=== PATIENT | male | born 1950 | race Caucasian/White ===

== ENCOUNTER → 2016-04-27 | Outpatient (CLI) | payer BC, OTHER ==
[2016-04-28 11:02] LABS: BUN/CREATININE RATIO 18.46 (6-20); CREATININE 1.3 mg/dL (0.70-1.50); POTASSIUM 5.4 meq/L (3.8-5.2)
[2016-04-28 11:03] LABS: BILIRUBIN,TOTAL 0.7 mg/dL (0.3-1.2); CALCIUM 9.6 mg/dL (8.7-10.7); LDL CHOLESTEROL,CALCULATED 72.6 mg/dL; TOTAL PROTEIN 8.1 g/dL (6.1-8.0)
== END ==
LOC: MOB LAB 14:15
DX: I10 Essential (primary) hypertension (principal); E55.9 Vitamin D deficiency, unspecified; N40.1 Benign prostatic hyperplasia with lower urinary tract symptoms; F17.210 Nicotine dependence, cigarettes, uncomplicated; Z12.5 Encounter for screening for malignant neoplasm of prostate
CPT/HCPCS: 36415; 80053; 80061; 82306; 84443; G0103

== ENCOUNTER → 2016-06-09 | Outpatient (CLI) | payer BC, OTHER ==
[2016-06-09 11:45] LABS: BUN/CREATININE RATIO 18.12 (6-20); CALCIUM 10.3 mg/dL (8.7-10.7); CREATININE 1.6 mg/dL (0.70-1.50); POTASSIUM 5.6 meq/L (3.8-5.2)
== END ==
LOC: MOB LAB 10:02
DX: E87.5 Hyperkalemia (principal); F17.210 Nicotine dependence, cigarettes, uncomplicated
CPT/HCPCS: 36415; 80048

== ENCOUNTER 2016-08-28 14:03 | Emergency (ER) | payer BC, OTHER ==
[2016-08-28] MEDS ORDERED: ALPRAZolam Tab 1 MG TABLET PO ONE (14:18)
[2016-08-28 14:41] VITALS: RESP 14; TEMP 98
--- NOTE | 2016-08-28 15:18 | PDOC ---
General Adult HPI - General Chief Complaint: General Medical Stated Complaint: needs med refilled Date Seen by Provider: 08/28/16 Time Seen by Provider: 14:05 Source: POSITIVE: Patient Exam Limitations: POSITIVE: No limitations Nurse's Notes Reviewed & Considered: Yes - History of Present Illness Initial Comment: The patient is a 65-year-old male who presents to the emergency department with increased anxiety stating that he ran out of Xanax. The patient reports that he has a long-standing history of anxiety and previous history of alcohol abuse. He currently denies any alcohol use. He states he has had increased stress recently as his is currently ill and was life flighted to [place] several days ago. He states that he has taken Xanax for his anxiety for quite some time. He is prescribed one or 2 every 8 hours as needed. He reports that he has been taking 2 every 8 hours recently because of his increased stress. He subsequently ran out of his Xanax and is not due to have it filled until Monday of this week. He states that he ran out of his prescription 3 days ago. He thinks that he had a seizure yesterday that was witnessed by his son. Today he reports some shakiness however has not had any further seizure activity. He denies headache, numbness or weakness in his extremities, any other associated symptoms. Have you received a tetanus shot in the past 10 years?: Unknown - Patient Home Medications Home Medications: Home Medications Multivitamin W-Minerals/Lutein [Centrum Silver Tablet] 1 tab PO DAILY tab 03/26 Sildenafil Citrate [Viagra] 0.5 - 1 tab PO DAILY PRN #10 tab 04/16/14 Aspirin [Low Dose Aspirin Ec] 1 tab PO QD #30 tab 05/18/15 Lansoprazole [Prevacid] 1 cap PO QD PRN #30 cap 08/04/15 Alprazolam 0.5 - 1 mg PO TID #90 tab 04/04/16 Nifedipine [Procardia Xl] 1 tab PO QD #30 tab 04/04/16 Valsartan/Hydrochlorothiazide [Diovan Hct 160-12.5 Mg Tab] 1 tab PO BID #60 tab 04/04/16 Cholecalciferol (Vitamin D3) [Vitamin D3] 1 cap PO QD #30 cap 05/03/16 Hydrocodone/Ibuprofen [Hydrocodone-Ibuprofen 7.5-200] 1 tab PO Q6H PRN #120 tab 08/03/16 Alprazolam [Xanax] 0.5 - 1 mg PO Q8H PRN #10 tab 08/28/16 - Patient Allergies Allergies/Adverse Reactions: Allergies Allergy/AdvReac Type Severity Reaction Status Date / Time codeine [Codeine] AdvReac Mild FELT BAD. Verified 08/28/16 14:18 Past Medical History - heen HEENT History: Hard of Hearing, Dentures/Partials, Other (please comment) Additional HEENT History: WEARS GLASSES Cardiovascular History: Hypertension Additional Cardiovasular History: aortic valve replaced 2006 Respiratory History: Denies History Gastrointestinal History: Hepatitis, Other (please comment) Additional Gastrointestinal History: PROPHERIA Genitourinary History: Denies History Endocrine History: Denies History Musculoskeletal History: Arthritis, Back Pain, Joint Pain Prosthesis or Implant: No Neurological History: Denies History Blood Disorders: Denies History Psychiatric History: Anxiety Disorders History of Sexually Transmitted Diseases: No Male Reproductive History: Impotence Cancer History: Denies History In Past Year Been Physically Harmed or Verbally Threatened: No (PER PATIENT) History of MDRO: No History of Other Communicable Diseases: No Tobacco Use: Light Tobacco Smoker Alcohol Use: None Substance Use Type: None Previous Surgical History: Yes Type / Date of Surgery: AORTIC VALVE REPLACEMENT (BOVINE), BILATERAL SHOULDER REPAIRS, RIGHT INGUINAL HERNIA REPAIR, L5 DISC REPAIR Anesthesia Reactions: No Malignant Hyperthermia: No Family History of Malignant Hyperthermia: No Significant Family History: No pertinent family hx Past Medical History Reviewed: Reviewed - No Changes ROS - Limitations ROS Limitations: No Limitations Constitution: REPORTS: Denies Symptoms Cardiovascular: REPORTS: Denies Cardiac Symptoms Respiratory: REPORTS: Denies Resp Symptoms Neurological: REPORTS: Seizure Activity (Yesterday according to his son). DENIES: Headache, Numbness, Weakness Gastrointestinal: REPORTS: Denies GI Symptoms Musculoskeletal: REPORTS: Denies MS Symptoms Eyes: REPORTS: Denies Symptoms ENT: REPORTS: Denies Symptoms General Adult Exam - General Appearance General Appearance: POSITIVE: Alert, Cooperative, No Acute Distress - HEENT HEENT: POSITIVE: Head Inspection Nml - Neck Neck: POSITIVE: Normal Inspection - Respiratory Respiratory: POSITIVE: No Respiratory Distress, Breath Sounds Normal - Cardiovascular Cardiovascular: POSITIVE: Regular Rate & Rhythm, No Murmur - Skin Skin: POSITIVE: Normal Color, No Rash - Extremities Extremity: Normal ROM: (All Extremities), Normal Inspection: (All Extremities) - Neurological / Psychological Neurological: POSITIVE: Oriented X3, 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 He was given 1 mg of Xanax here in the emergency department. He was given a prescription for #10 0.5 mg tabs which he can take one or 2 every 8 hours as needed for anxiety which is how this is normally prescribed. He is advised return to the emergency room if he develops any worsening withdrawal symptoms or especially if he has any recurrent seizure. He will follow-up with his primary care provider Dr. Way to discuss further prescriptions for his anxiety. He did express interest in weaning off of the Xanax. - Consult Counseled: POSITIVE: Patient, RE: DX, RE: Need for F/U Patient Care Time - Estimated PCT Patient Care Time (In Minutes): 15 Vital Signs - Recent Vital Signs Vital Signs: Vital Signs (Last 8 hours) Temp Pulse Resp BP Pulse Ox 08/28/16 14:03 98.0 F 71 14 140/90 96 - VS Reviewed Vital Signs Reviewed: Yes Discharge Clinical Impression: Anxiety, Benzodiazepine withdrawal Discharge Disposition: Discharged to Home Condition: Stable Prescriptions / Orders: Alprazolam [Xanax] 0.5 - 1 mg PO Q8H PRN #10 tab PRN Reason: Anxiety Patient Instructions Given at Discharge: Anxiety (ED) Additional Instructions: Xanax 0.5 mg, one or 2 every 8 hours as needed for anxiety. Return to the emergency room if any further seizure activity, worsening withdrawal symptoms, any worsening or change in symptoms. Follow-up with Dr. Way in the next couple of days to discuss further prescriptions for Xanax. Follow Up With: BRIAN WAY [Primary Care Provider] -
== END 2016-08-28 14:46 | disposition home or self-care (01) ==
LOC: ER 14:03
DX: F13.239 Sedative, hypnotic or anxiolytic dependence with withdrawal, unspecified (principal); T42.4X5A Adverse effect of benzodiazepines, initial encounter; F41.9 Anxiety disorder, unspecified; I10 Essential (primary) hypertension
CPT/HCPCS: 99282

== ENCOUNTER 2017-11-28 16:26 | Inpatient (IN) ==
[2017-11-28] MEDS ORDERED: HYDROmorphone 2 MG/1 ML IVP ONE (16:58)
[2017-11-28] MEDS ORDERED: Sodium Chloride 0.9% 1,000 ML PRIMARY IV ONE (16:58)
[2017-11-28] MEDS ORDERED: ONDANSETRON 4 MG/2 ML VIAL IVP ONE (16:58)
[2017-11-28] MEDS ORDERED: FAMOTIDINE 20 MG/2 ML VIAL IVP ONE (16:58)
[2017-11-28 17:06] LABS: Hematocrit [HCT] 42.6 % (42.0-52.0); Hemoglobin [HGB] 15.9 g/dL (14.0-18.0); MEAN CORPUSCULAR HEMOGLOBIN 34.3 PG (27-31); MEAN CORPUSCULAR HGB CONC 37.3 g/dL (33-37); MEAN PLATELET VOLUME 11.2 FL (7.4-12.2); RED BLOOD COUNT 4.63 10^6/uL (4.70-6.10)
[2017-11-28 17:11] LABS: BUN/CREATININE RATIO 9.04 (6-20); SERUM ALBUMIN 5.1 g/dL (3.5-4.8)
[2017-11-28 17:17] LABS: BILIRUBIN,URINE NEGATIVE (NEG); CLARITY,URINE CLEAR (CLEAR); COLOR,URINE YELLOW (Y); GLUCOSE, URINE (UA) NEGATIVE (NEG); OCCULT BLOOD,URINE SMALL (NEG); PH,URINE 5.5 (5.0-8.5); PROTEIN,URINE TRACE mg/dl (NEG); UROBILINOGEN,URINE 0.2 EU/dL (0.2)
[2017-11-28 17:28] LABS: PLATELET MORPHOLOGY COMMENT NORMAL MORPHOLOGY (NORM); RBC MORPHOLOGY COMMENT NORMAL MORPHOLOGY (NORM); WBC MORPHOLOGY COMMENT NORMAL MORPHOLOGY (NORM)
[2017-11-28 17:29] LABS: BACTERIA,URINE FEW; URINE CASTS MODERATE; URINE SAMPLE TYPE CLEAN CATCH URINE; WBC,URINE 0
[2017-11-28 17:30] LABS: BAND NEUTROPHILS % 0 % (0-10); BASOPHILS % (MANUAL) 1 % (0-1); EOSINOPHILS % (MANUAL) 0 % (0-8); MONOCYTES % (MANUAL) 7 % (0-12); NEUTROPHILS % (MANUAL) 72 % (50-80)
--- NOTE | 2017-11-28 18:31 | DI ---
CT ABDOMEN SCAN WITHOUT IV CONTRAST, 11/28/2017 5:41 PM : Clinical History: Bilateral upper quadrant pain. Previous Exam: 04/25/2015. Scans are performed from the lower lung bases through the liver and kidneys without IV contrast. Sagi ttal and coronal reformatted images are generated. No oral or rectal contrast was ordered. The lung bases are clear. The patient is status post aortic valve replacement. The liver is normal in size and shows diffuse fatty infiltration. There is an ovoid structure in the gallbladder fossa that is consistent with the gallbladder but it has the identical density as the liver parenchyma. If the patient has had a cholecystectomy, then this structure represents a regenerating nodule of the right lobe of the liver. The pancreas has a normal appearance except for presence of punctate calcification s anteriorly in the proximal portion of the body of the pancreas. This would be consistent with chron ic pancreatitis. The adrenal glands and the spleen are normal. Both kidneys are normal in size, shape , position and contour. There is no hydronephrosis or hydroureter. There is a small 3 mm nonobstructi ng calculus in upper pole calyx of the left kidney. There are no abnormal retrocrural or periaortic n odes. No ascites is present. READIN. The pancreas appears normal overall but there are calcifications within it indicating chronic peña creatitis. 2. There is a structure in the gallbladder fossa that is probably the gallbladder filled with bile b ut is of the same density as the liver. If this patient has had a cholecystectomy, then this density in the gallbladder fossa would represent a regenerating liver nodule. The liver itself demonstrates f atty infiltration. 3. Nonobstructing 3 mm calculus in upper pole calyx of the left kidney. CT PELVIS SCAN WITHOUT IV CONTRAST, 11/28/2017 5:41 PM : Clinical History: See above. Previous Exam: 04/25/2015. Scans are performed from the inferior margin of the liver and kidneys to the symphysis pubis without IV contrast. Scans through the lower abdomen and pelvis show no masses or abnormal fluid collections. There is no adenopathy. The appendix is not visualized but there is no inflammatory mass either in the cecal tip or in the right lower quadrant. The small bowel, terminal ileum, and ileocecal valve are normal. The colon is also normal. There is a small umbilical hernia through which only mesenteric fat has herniat ed. READING: Normal CT pelvis scan without IV contrast.
--- NOTE | 2017-11-28 19:20 | PDOC ---
Abdomen/Flank HPI - General Chief Complaint: Abdomen Pain Stated Complaint: pancreatitis Date Seen by Provider: 11/28/17 Time Seen by Provider: 16:40 Source: POSITIVE: Patient Exam Limitations: POSITIVE: No limitations Nurse's Notes Reviewed & Considered: Yes - History of Present Illness Initial Comments: The patient is a 67-year-old male. He presents to the emergency room complaining of upper abdominal pain. Patient states he has a history of pancreatitis which presents. Similar to his present symptoms. He has a long- standing history of alcohol abuse. He states he had "2 or 3 drinks "24-25 hours ago. He does however smells strongly of alcohol. He has had a bovine aortic valve replaced and has had bilateral shoulder surgeries. 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 Left inguinal herniorrhaphy. No known fevers. He's had nausea but no vomiting. No diarrhea, melena, hematochezia, hematemesis, dysuria or hematuria. Body Location Affected: REPORTS: Abdomen Timing: REPORTS: Gradual, Getting Worse Duration: <24 hours Severity: Moderate Quality: REPORTS: "Pain" Abdominal Pain Onset Location: REPORTS: Epigastric Abdominal Pain Radiation: REPORTS: No radiation Context: REPORTS: None Modifying Factors: improves with: Other (Alcohol) Associated Symptoms: REPORTS: Nausea. DENIES: Denies symptoms, Back pain, Bloody Emesis, Chest pain, Coffee Grounds Emesis, Chills, Diaphoresis, Fever, Fatigue, Headache, Heartburn, Loss of Appetite, Rash, Shortness of breath, Swelling/mass in abdomen, Syncope, Testicular Pain, Vomiting, Weakness, Grossly Bloody Diarrhea, Constipation, Diarrhea, Dysuria, Incontinent Stool, Incontinent Urine, Mucous Diarrhea, Difficulty Walking, Dizziness, Light Headedness, Numbness, Other Similar Symptoms Previously: Yes Recent Care Received: REPORTS: Denies Any Prior Injuries Related to Current Complaint?: No - Patient Home Medications Home Medications: Home Medications Multivitamin W-Minerals/Lutein [Centrum Silver Tablet] 1 tab PO DAILY tab 03/26 Aspirin [Low Dose Aspirin Ec] 1 tab PO QD #30 tab 05/18/15 Cholecalciferol (Vitamin D3) [Vitamin D3] 1 cap PO QD #30 cap 05/03/16 lansoprazole 30 mg capsule,delayed release 30 mg PO QD PRN #30 cap 12/14/17 sildenafil 50 mg tablet 50 mg PO QDAY PRN #30 tab 08/23/17 alprazolam 0.5 mg tablet 0.5 mg PO BID #60 tab 10/10/17 nifedipine ER 30 mg tablet,extended release 24 hr 30 mg PO QDAY #30 tab valsartan 160 mg-hydrochlorothiazide 12.5 mg tablet 1 tab PO BID #60 tab - Patient Allergies Allergies/Adverse Reactions: Allergies 3 Allergy/AdvReac Type Severity Reaction Status Date / Time codeine [Codeine] AdvReac Mild FELT BAD. Verified 11/28/17 16:37 Past Medical History - heen HEENT History: Hard of Hearing, Dentures/Partials, Other (please comment) Additional HEENT History: WEARS GLASSES Cardiovascular History: Hypertension Additional Cardiovasular History: aortic valve replaced 2006 Respiratory History: Denies History Gastrointestinal History: Hepatitis, Other (please comment) Additional Gastrointestinal History: PROPHERIA Genitourinary History: Denies History Endocrine History: Denies History Musculoskeletal History: Arthritis, Back Pain, Joint Pain Prosthesis or Implant: No Neurological History: Denies History Blood Disorders: Denies History Psychiatric History: Anxiety Disorders History of Sexually Transmitted Diseases: No Male Reproductive History: Denies History Cancer History: Denies History In Past Year Been Physically Harmed or Verbally Threatened: No History of MDRO: No History of Other Communicable Diseases: No Tobacco Use: Current Every Day Smoker Alcohol Use: None In the Past 12 Months, Have Used or Abuse Any Substance: Marijuana Previous Surgical History: Yes Type / Date of Surgery: AORTIC VALVE REPLACEMENT (BOVINE), BILATERAL SHOULDER REPAIRS, RIGHT INGUINAL HERNIA REPAIR, L5 DISC REPAIR Anesthesia Reactions: No Malignant Hyperthermia: No Significant Family History: No pertinent family hx Past Medical History Reviewed: Reviewed - No Changes ROS - Limitations ROS Limitations: No Limitations Constitution: REPORTS: Denies Symptoms Cardiovascular: REPORTS: Denies Cardiac Symptoms Respiratory: REPORTS: Denies Resp Symptoms Neurological: REPORTS: Denies Neuro Symptoms Gastrointestinal: REPORTS: Abdominal Pain, Nausea Endocrine: REPORTS: Denies Symptoms Musculoskeletal: REPORTS: Denies MS Symptoms Genitourinary: REPORTS: Denies Symptoms Eyes: REPORTS: Denies Symptoms ENT: REPORTS: Denies Symptoms Skin: REPORTS: Denies Skin Symptoms Lympathic: REPORTS: Denies Lympathic Symptoms Immunologic: POSITIVE: Denies Symptoms Psychiatric: POSITIVE: Denies Psych Symptoms Abdominal/Flank Pain PE - General Appearance General Appearance: POSITIVE: Alert, Cooperative, No Evidence of Trauma, Mild Distress. NEGATIVE: No Acute Distress - HEENT HEENT: POSITIVE: Head Inspection Nml, Eyes Inspection Nml, Ears Inspection Nml, Nose Inspection Nml, Oral/Dental Inspect. Nml, Pharynx Inspect. Nml, PERRL, EOMI - Neck Neck: POSITIVE: Normal Inspection, No Apparent Injury - Respiratory Respiratory: POSITIVE: No Respiratory Distress, Breath Sounds Normal, Chest Non- Tender - Cardiovascular Cardiovascular: POSITIVE: Regular Rate and Rhythm, Heart Sounds Normal, Equal Pulses, Strong Pulses Peripheral Pulses: Radial (R): 2+, Radial (L): 2+ - Chest Chest: POSITIVE: Non Tender - Abdomen Abdomen: Soft: (All Quadrants), Normal Bowel Sounds: (All Quadrants), Denies Tenderness: (LLQ), (RLQ), No Splenomegaly: (All Quadrants), No Hepatomegaly: ( All Quadrants), No Guarding: (All Quadrants), No Rebound: (All Quadrants), No Palpable Pulse: (All Quadrants), No Palpabale Mass: (All Quadrants), No Distention: (All Quadrants), No Rigidity: (All Quadrants), Tenderness Noted: ( RLQ), (LLQ) Additional Abdominal Details: Abdominal examination shows bowel sounds be present. He does express discomfort on direct palpation of the epigastrium and left upper and right upper abdominal quadrants. No masses, organomegaly or rebound. 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 Lab Results Reviewed by Me: Yes (lipase 1295, amylase 192, creatinine 2.1) CBC and BMP: 11/28/17 16:40 11/28/17 16:40 Lab Results:: Laboratory Results 3 11/28/17 11/28/17 11/28/17 16:40 16:40 16:40 WBC 10.04 RBC 4.63 L Hgb 15.9 Hct 42.6 MCV 92.0 H MCH 34.3 H MCHC 37.3 H RDW Std Deviation 47.2 RDW Coeff of Faviola 14.3 Plt Count 150 MPV 11.2 Neutrophils % (Manual) 72 Band Neutrophils % 0 Lymphocytes % (Manual) 20 Monocytes % (Manual) 7 Eosinophils % (Manual) 0 Basophils % (Manual) 1 Metamyelocytes % Not Reportable Myelocytes % Not Reportable Promyelocytes % Not Reportable Blast Cells Not Reportable WBC Morphology Comment Normal morphology Plt Morphology Comment Normal morphology RBC Morph Comment Normal morphology Sodium 133 L Potassium 4.5 Chloride 95 L Carbon Dioxide 17 L Anion Gap 21 H BUN 19 Creatinine 2.1 H Estimated GFR 32 BUN/Creatinine Ratio 9.04 Glucose 92 Calculated Osmolality 277.0 Calcium 10.1 Total Bilirubin 1.0 AST 115 H ALT 122 H Alkaline Phosphatase 70 Total Protein 8.7 H Albumin 5.1 H Globulin 3.6 Albumin/Globulin Ratio 1.40 Amylase 192 H Lipase 1295 H* Ur Collection Type Urine Color Urine Clarity Urine pH Ur Specific [place] Urine Protein Urine Glucose (UA) Urine Ketones Urine Occult Blood Urine Nitrate Urine Bilirubin Urine Urobilinogen Ur Leukocyte Esterase Urine RBC Urine WBC Ur Squamous Epith Cells Ur Renal Epithelial Cell Urine Crystals Urine Bacteria Urine Casts Urine Mucus Urine Trichomonas Urine Yeast Ur Culture Indicated? Serum Alcohol 122 H 3 11/28/17 17:05 WBC RBC Hgb Hct MCV MCH MCHC RDW Std Deviation RDW Coeff of [place]avi[place] Plt Count MPV Neutrophils % (Manual) Band Neutrophils % Lymphocytes % (Manual) Monocytes % (Manual) Eosinophils % (Manual) Basophils % (Manual) Metamyelocytes % Myelocytes % Promyelocytes % Blast Cells WBC Morphology Comment Plt Morphology Comment RBC Morph Comment Sodium Potassium Chloride Carbon Dioxide Anion Gap BUN Creatinine Estimated GFR BUN/Creatinine Ratio Glucose Calculated Osmolality Calcium Total Bilirubin AST ALT Alkaline Phosphatase Total Protein Albumin Globulin Albumin/Globulin Ratio Amylase Lipase Ur Collection Type Clean catch urine Urine Color Yellow Urine Clarity Clear Urine pH 5.5 Ur Specific [place] 1.010 Urine Protein Trace Urine Glucose (UA) Negative Urine Ketones Negative Urine Occult Blood Small H Urine Nitrate Negative Urine Bilirubin Negative Urine Urobilinogen 0.2 Ur Leukocyte Esterase Negative Urine RBC 3-5 Urine WBC 0 Ur Squamous Epith Cells None Ur Renal Epithelial Cell None Urine Crystals None Urine Bacteria Few Urine Casts Moderate Urine Mucus Many Urine Trichomonas None Urine Yeast None Ur Culture Indicated? Culture not set Serum Alcohol - Patient's Progress Pain Medication Addressed: POSITIVE: Yes (Patient given a milligram of Dilaudid IV with good pain relief) School/Work Release Addressed: POSITIVE: Not Applicable Re-examine Time: 18:25 Re-Examine Comment: Results of lab studies discussed with patient. Blood alcohol is 122, even though the patient states he only had 2 or 3 drinks 24 hours ago. Status: POSITIVE: Improved, Re-Examined - Consult Consult (If Yes, Name of Consulting MD & Time Called): Yes (Dr. Santos, hospitalist, [id number]) Consulting MD will see pt:: [facility]IVE[facility] [place] Admit Counseled: POSITIVE: Patient, RE: Lab Results, RE: Radiology Results, RE: DX, RE : Need for F/U Patient Care Time - Estimated PCT Patient Care Time (In Minutes): 50 Vital Signs - Recent Vital Signs Vital Signs: Vital Signs (Last 8 hours) Temp Pulse Resp BP Pulse Ox 11/28/17 17:24 98.8 F 79 18 178/109 96 - VS Reviewed Vital Signs Reviewed: Yes Discharge Clinical Impression: Pancreatitis, Chronic kidney disease, stage III (moderate), Alcohol abuse Discharge Disposition: Admit to Inpatient Condition: Fair Date Decision to Admit to Inpatient: 11/28/17 Time Decision to Admit to Inpatient: 18:35
--- NOTE | 2017-11-28 19:24 | PDOC ---
HPI - History of Present Illness Date of Service: 11/28/17 Time of Service: 19:30 Chief Complaint: Abdominal pain that started morning History of Present Illness: This is a 67 years old male with medical history significant for history of hypertension, aortic valve replacement with bovine valve for aortic stenosis in 2006, admission in 2016 for acute alcoholic pancreatitis that was complicated by severe withdrawal needed intubation, anxiety, history of hepatitis C that was treated in the past and history also of porphyria cutanea tarda who presented to the hospital with history of abdominal pain felt mainly in mid and right upper abdomen that started this morning. Pain was severe. He had nausea but no vomiting. He said he was drinking last night and also had some drink this morning. No diarrhea. Because of the symptoms he came into the ER. He was given pain medication and IV fluid. Evaluation revealed elevated lipase more than 1200, a CT of the abdomen showed calcification in the pancreas he was admitted for acute pancreatitis. Currently he said his pain is down after the Dilaudid that was getting in the ER. He still have some nausea. He's feeling some cold. Said he has shakes and usually take alprazolam. He Is not sure whether he took his alprazolam today are not. No shortness of breath or chest pain. No diarrhea. He said that he drinks 3 times per week maybe 2 drinks. Past Medical History Medical History: 1. Hypertension. 2. Aortic valve replacement with bovine valve for aortic stenosis in 2006. 3. Hepatitis C in the past treated according to the patient with interferon and ribavirin and he cleared the infection. 4. Anxiety on Xanax twice a day. 5. GERD. 6. History of admission in 2016 for acute pancreatitis that was complicated by severe alcohol withdrawal need to be intubated he was extubated but that was unsuccessful and had to be reintubated and transferred to [facility]. He had the MSSA pneumonia then also. 7. History of porphyria cutanea tarda Surgical History: 1. Aortic valve replacement bovine valve. 2. History of fatty tumor removed from the abdominal wall. 3. Hernia surgery. 4. L4-5 laminectomy 2008. 5. Left total shoulder arthroplasty in 2014 Past Social History: He smokes pipe according to him now, he drinks maybe 3 times a week two drinks a day. Smoked marijuana. He said he was sober after the first attack of pancreatitis in 2015 and started drinking again about a year ago. Tobacco Use: Current Every Day Smoker In the Past 12 Months, Have Used or Abuse Any of the Following Substance: Marijuana Alcohol Use: Other Medication / Allergies Home Medications: Home Medications 3 Medication Instructions Recorded Confirmed Type Multivitamin W-Minerals/Lutein 1 tab PO DAILY tab 03/26/13 11/28/17 History [Centrum Silver Tablet] Aspirin [Low Dose Aspirin Ec] 1 tab PO QD #30 tab 05/18/15 11/28/17 History Cholecalciferol (Vitamin D3) 1 cap PO QD #30 cap 05/03/16 11/28/17 Rx [Vitamin D3] lansoprazole 30 mg capsule,delayed 30 mg PO QD PRN #30 cap 04/06/17 11/28/17 Rx release sildenafil 50 mg tablet 50 mg PO QDAY PRN #30 tab 08/23/17 11/28/17 Rx alprazolam 0.5 mg tablet 0.5 mg PO BID #60 tab 10/10/17 11/28/17 Rx nifedipine ER 30 mg 30 mg PO QDAY #30 tab 10/17/17 11/28/17 Rx tablet,extended release 24 hr valsartan 160 1 tab PO BID #60 tab 10/17/17 11/28/17 Rx mg-hydrochlorothiazide 12.5 mg tablet Allergies/Adverse Reactions: Allergies 3 Allergy/AdvReac Type Severity Reaction Status Date / Time codeine [Codeine] AdvReac Mild FELT BAD. Verified 11/28/17 16:37 Review of Systems - Review of Systems All Systems: Reviewed & No Additional Complaints Except as Stated Exam - Vitals Vital Signs: Vital Signs Temperature 98.8 F Temperature Source Temporal Artery Scan Pulse Rate [Pulse Oximeter 79 Bilateral Radial] Respiratory Rate 18 Blood Pressure [Left Arm] 178/109 Pulse Ox 96 Oxygen Delivery Method Room Air Height 5 ft 8 in Weight 185 lb - General General Appearance: Cooperative, Thin Additional General Exam Details: At times he Had some shakes during the interview - Head Head Exam: Normal Inspection - Eye Eye Exam: POSITIVE: Normal Appearance - ENT ENT Exam: POSITIVE: Normal Exam, Mucous Membranes Dry Additonal ENT Exam Details: He smells of alcohol - Neck Neck Exam: Normal Inspection - Respiratory Respiratory Exam: POSITIVE: Clear to Auscultation - Bilaterally - Cardiovascular Cardiovascular Exam: POSITIVE: RRR - GI/Abdominal GI/Abdominal Exam: POSITIVE: Normal Bowel Sounds, Non Distended, Soft, No Organomegaly Additional GI/Abdominal Exam Details: Some tenderness noted in the mid epigastric area - Rectal Rectal Exam: POSITIVE: Deferred - External Exam: POSITIVE: Deferred Exam: POSITIVE: Deferred - Extremities Extremities Exam: POSITIVE: Normal Inspection - Back Back Exam: POSITIVE: Normal Inspection - Neurological Neurological Exam: POSITIVE: Alert, Oriented x 3, CN II-XII Intact, No Facial Droop, Speech Intact / Clear, Moves All Extremities Equally - Psychiatric Psychiatric Exam: POSITIVE: Normal Affect - Integumentary Integumentary Exam: POSITIVE: Normal Color, Dry Results - Labs CBC and BMP: 11/28/17 16:40 11/28/17 16:40 - Imaging Status: Report Reviewed by Me (CT abdomen and pelvis 1. The pancreas appears normal overall but there are calcifications within it indicating chronic pancreatitis. 2. There is a structure in the gallbladder fossa that is probably the gallbladder filled with bile but is of the same density as the liver. If this patient has had a cholecystectomy, then this density in the gallbladder fossa would represent a regenerating liver nodule. The liver itself demonstrates fatty infiltration.) Assessment and Plan - Patient Problems (1) Pancreatitis Current Visit: Yes Status: Acute Comment: Probably alcoholic acute pancreatitis. Will put him on IV fluids, wrote for pain medication and anti-emetics. I think we'll try clear liquid with him. Will Put him on Protonix in case there is also element of gastritis. Will take a blood culture as he had some shakes. This may be secondary to beginning of alcohol withdrawal though. Code(s): K85.9 - Acute pancreatitis, unspecified (2) Acute renal failure Current Visit: Yes Status: Acute Comment: There is worsening of his kidney function compared to the previous one this may be secondary to dehydration will put on IV fluids will repeat his labs in the morning. Code(s): N17.9 - Acute kidney failure, unspecified (3) Essential hypertension Current Visit: No Status: Acute Onset Date: 02/25/11 Comment: We'll continue with nifedipine tomorrow, we'll hold off on a diuretic and valsartan. Code(s): I10 - Essential (primary) hypertension (4) Metabolic acidosis, increased anion gap Current Visit: Yes Status: Acute Comment: Maybe Secondary to renal failure or starvation. Will hydrate him repeat his labs in the morning Code(s): E87.2 - Acidosis (5) Alcohol use Current Visit: No Status: Acute Comment: He had a history of alcohol withdrawal before he is at risk of having it again. Will put him on CIWA scale. Will write for Ativan as needed per the scale. Code(s): Z78.9 - Other specified health status (6) Elevated liver function tests Current Visit: Yes Status: Acute Comment: Maybe secondary to alcoholism will repeat his labs in the morning. will order US tomorrow of the abdomen. Code(s): R94.5 - Abnormal results of liver function studies
[2017-11-28] MEDS ORDERED: MAGNESIUM 400 MG/5 ML - 30 ML (MILK OF MAGNESIA) PO PRN (19:39)
[2017-11-28] MEDS ORDERED: ONDANSETRON 4 MG/2 ML VIAL IVP PRN (19:39)
[2017-11-28] MEDS ORDERED: LIDOCAINE W/ SODIUM BICARB 0.5 ML SYR SUBD PRN (19:39)
[2017-11-28] MEDS ORDERED: MAG HYDROX/AL HYDROX/SIMETH 30 ML SUSP PO PRN (19:39)
[2017-11-28] MEDS ORDERED: Loperamide Tab 2 MG TABLET PO PRN (19:39)
[2017-11-28] MEDS: Sodium Chloride 0.9% 1,000 ML PRIMARY IV SCH (19:47)
[2017-11-28] MEDS: MAGNESIUM OXIDE 400 MG TABLET PO SCH (20:09)
[2017-11-28] MEDS: LORazepam Inj(ETOH withdrawal) 2 MG/ML VIAL IVP PRN (20:09)
[2017-11-29] MEDS: LORazepam Inj(ETOH withdrawal) 2 MG/ML VIAL IVP PRN ×3 (02:05→20:03)
[2017-11-29] MEDS: HYDROmorphone 2 MG/1 ML IVP PRN ×2 (02:06→10:59)
[2017-11-29] MEDS: Sodium Chloride 0.9% 1,000 ML PRIMARY IV SCH ×3 (02:56→18:56)
[2017-11-29 06:08] LABS: BASOPHILS # (AUTO) 0.04 10*3/UL; BASOPHILS % (AUTO) 0.6 % (0-1); EOSINOPHILS # (AUTO) 0.15 10*3/UL; EOSINOPHILS % (AUTO) 2.2 % (0-8); Hematocrit [HCT] 37.2 % (42.0-52.0); Hemoglobin [HGB] 13.2 g/dL (14.0-18.0); LYMPHOCYTES # (AUTO) 1.77 10*3/uL; MEAN CORPUSCULAR HEMOGLOBIN 33.7 PG (27-31); MEAN CORPUSCULAR HGB CONC 35.5 g/dL (33-37); MEAN CORPUSCULAR VOLUME 94.9 FL (80-90); MEAN PLATELET VOLUME 10.6 FL (7.4-12.2); MONOCYTES # (AUTO) 0.75 10*3/UL (0.3-0.8); MONOCYTES % (AUTO) 10.9 % (5-15); NEUTROPHILS # (AUTO) 4.13 10*3/UL; NEUTROPHILS % (AUTO) 60.4 % (50-80); RED BLOOD COUNT 3.92 10^6/uL (4.70-6.10)
[2017-11-29 06:12] LABS: PLATELET MORPHOLOGY COMMENT NORMAL MORPHOLOGY (NORM); RBC MORPHOLOGY COMMENT NORMAL MORPHOLOGY (NORM); WBC MORPHOLOGY COMMENT NORMAL MORPHOLOGY (NORM)
[2017-11-29 06:40] LABS: SERUM ALBUMIN 3.5 g/dL (3.5-4.8)
--- NOTE | 2017-11-29 08:24 | PDOC(PROG) ---
Date and Time of Service: 11/29/2017 8:24 AM Interval History: Subjective His pain seemed to be improving. He received the Dilaudid systems technician and that helped his pain. No significant pain currently. Nausea seemed to be improved. No vomiting. Shakes are less than yesterday. Objective : Data - Labs CBC and BMP: 11/29/17 05:50 11/29/17 06:00 Objective : Exam - General General Appearance: No Acute Distress, Cooperative - Head Head Exam: Normal Inspection - Eye Eye Exam: Normal Appearance - ENT ENT Exam: Normal Exam - Neck Neck Exam: Normal Inspection - Respiratory Respiratory Exam: Clear to Auscultation - Bilaterally - Cardiovascular Cardiovascular Exam: RRR - GI/Abdominal GI/Abdominal Exam: Normal Bowel Sounds, Non Distended, Soft, No Organomegaly Additional GI/Abdominal Exam Details: There is no significant tenderness like yesterday. - Rectal Rectal Exam: Deferred - External Exam: Deferred Exam: Deferred - Extremities Extremities Exam: Normal Inspection - Back Back Exam: Normal Inspection - Neurological Neurological Exam: Alert, Oriented x 3, CN II-XII Intact, No Facial Droop, Speech Intact / Clear, Moves All Extremities Equally - Psychiatric Psychiatric Exam: Normal Affect - Integumentary Integumentary Exam: Normal Color Assessment and Plan - Patient Problems (1) Pancreatitis Current Visit: Yes Status: Acute Comment: Continue IV fluid will cut back on it. Continue clear liquid diet. He didn't try anything yet. Will repeat his labs in the morning. Code(s): K85.9 - Acute pancreatitis, unspecified (2) Acute renal failure Current Visit: Yes Status: Acute Comment: Kidney function improved continue hydration. Continue holding the diuretic. Code(s): N17.9 - Acute kidney failure, unspecified (3) Essential hypertension Current Visit: No Status: Acute Onset Date: 02/25/11 Comment: Continue nifedipine but will continue holding the diuretic and valsartan. Code(s): I10 - Essential (primary) hypertension (4) Metabolic acidosis, increased anion gap Current Visit: Yes Status: Acute Comment: Seems to be resolved Code(s): E87.2 - Acidosis (5) Alcohol use Current Visit: No Status: Acute Comment: He is on CIWA protocol continue Code(s): Z78.9 - Other specified health status (6) Elevated liver function tests Current Visit: Yes Status: Acute Comment: Seem to be improving probably secondary to the alcohol. He had an ultrasound done today. Code(s): R94.5 - Abnormal results of liver function studies
[2017-11-29] MEDS: MAGNESIUM OXIDE 400 MG TABLET PO SCH ×2 (08:42→20:04)
[2017-11-29] MEDS: Multivitamin Tab 1 TAB PO SCH (08:42)
[2017-11-29] MEDS: ALPRAZolam Tab 1 MG TABLET PO SCH ×2 (08:43→20:03)
[2017-11-29] MEDS: Thiamine Tab 100 MG TAB PO SCH (08:44)
[2017-11-29] MEDS: NIFEdipine 30 MG ER 24H TABLET PO SCH (08:44)
[2017-11-29] MEDS: ASPIRIN EC 81 MG TABLET PO SCH (08:44)
[2017-11-29] MEDS: LORazepam 1 mg tab (ETOH withdrawal) PO PRN ×2 (08:45→13:38)
[2017-11-29] MEDS: PANTOPRAZOLE IV 40 MG VIAL IVP SCH (08:47)
--- NOTE | 2017-11-29 09:09 | DI ---
GALLBLADDER AND LIVER ULTRASOUND, 11/29/2017 7:00 AM: Clinical History: Elevated liver function tests. Pancreatitis. Previous Exam: 12/30/2013. Technique: Scans are performed through the right upper quadrant in multiple projections. The patient was rolled from side to side and the gallbladder was balloted with the probe to facilitate visualizat ion of small gallstones. The gallbladder is well distended and has a normal wall thickness. There are no gallstones. The commo n bile duct measures 4 mm. The pancreas is visualized from the head to the body and is normal. The li terrence is normal in size and shows slight increased echogenicity with decreased through transmission con sistent with fatty infiltration. The right kidney, IVC, and aorta are normal. Readin. Normal gallbladder ultrasound. 2. Fatty infiltration of the liver. 3. Normal right kidney, aorta, IVC, and pancreas.
[2017-11-30] MEDS: Sodium Chloride 0.9% 1,000 ML PRIMARY IV SCH (03:20)
[2017-11-30 04:25] VITALS: O2SAT 96
[2017-11-30 06:05] LABS: BUN/CREATININE RATIO 8.66 (6-20); SERUM ALBUMIN 3.4 g/dL (3.5-4.8)
[2017-11-30 06:41] VITALS: BP 132/88; RESP 21; TEMP 98.1
[2017-11-30] MEDS: LORazepam Inj(ETOH withdrawal) 2 MG/ML VIAL IVP PRN (06:42)
--- NOTE | 2017-11-30 07:51 | DCSUMMARY ---
Hospitalization Summary Admit Date: 11/28/2017 Discharge Date: 11/30/17 Hospital Course: Discharge diagnoses 1. Acute alcoholic pancreatitis 2. Acute renal failure improved 3. History of aortic valve replacement with bovine valve 4. History of hepatitis C 5. History of anxiety 6. History of GERD 7. Alcoholism 8. History of porphyria cutanea tarda 9. Fatty liver Hospital course This is a 67 years old male with medical history significant for history of hypertension, aortic valve replacement bovine valve for aortic stenosis 2006, admission in 2016 for acute alcoholic pancreatitis that was complicated by severe withdrawal needed intubation, anxiety, history of hepatitis C that was treated in the past and also history of porphyria cutanea tarda who presented to the hospital with history of abdominal pain felt mainly in the mid and right upper abdomen that started the day of admission. Pain was severe he had nausea but no vomiting. He said he was drinking the night before he presented to the hospital and also was drinking on the day of admission. Because of the symptoms he came into the ER and was given pain medication and fluid. Evaluation did reveal elevated lipase more than 1200 CT of the abdomen showed calcification in the pancreas he was admitted for pancreatitis. We put him on IV fluids and pain medications. His kidney function was worse when he came in with 2.1. We've held the diuretic and his blood pressure medication and we gave him fluid. We did do an ultrasound of his abdomen as his LFTs were elevated. The ultrasound was negative except for fatty liver. He did have some mild withdrawal symptoms that responded to Ativan. On the day of discharge he was feeling better there was no pain in the abdomen and was nontender. There was no tremor in his hand he wanted to leave and did not wants to stay in the hospital. He tolerated diet and he was discharged home after that. He needs follow-up with his primary. Did advise him to quit drinking. On the day of discharge his creatinine went down to 1.5 from 2.1 when he came in. He did also have increased anion gap acidosis when he came in and that's resolved. Laboratory Results 11/30/17 Range/Units 05:20 Sodium 137 (135-145) meq/L Potassium 4.6 (3.8-5.2) meq/L Chloride 106 (98-112) meq/L Carbon Dioxide 23 (23-33) meq/L Anion Gap 8 (5-20) BUN 13 (7-22) mg/dL Creatinine 1.5 (0.70-1.50) mg/dL Estimated GFR 47 (>60 ml/min/1.73m(2)) BUN/Creatinine Ratio 8.66 (6-20) Glucose 72 L (78-110) mg/dL Calculated Osmolality 282.0 (267-292) mOsm/kg Calcium 8.7 (8.7-10.7) mg/dL Total Bilirubin 0.8 (0.3-1.2) mg/dL AST 54 (21-57) IU/L ALT 71 (21-72) IU/L Alkaline Phosphatase 47 (38-126) IU/L Total Protein 6.2 (6.1-8.0) g/dL Albumin 3.4 L (3.5-4.8) g/dL Globulin 2.8 (2.50-4.10) g/dL Albumin/Globulin Ratio 1.20 L (1.3-2.0) mg/g Lipase 437 H (23-300) IU/L Discharge instruction Diet regular activity as started Medications Current Medication(s) 3 Medication Instructions Recorded Confirmed Type Multivitamin W-Minerals/Lutein 1 tab PO DAILY tab 03/26/13 11/28/17 History [Centrum Silver Tablet] Aspirin [Low Dose Aspirin EC] 1 tab PO QD #30 tab 05/18/15 11/28/17 History Cholecalciferol (Vitamin D3) 1 cap PO QD #30 cap 05/03/16 11/28/17 Rx [Vitamin D3] lansoprazole 30 mg capsule,delayed 30 mg PO QD PRN #30 cap 04/06/17 11/28/17 Rx release sildenafil 50 mg tablet 50 mg PO QDAY PRN #30 tab 08/23/17 11/28/17 Rx alprazolam 0.5 mg tablet 0.5 mg PO BID #60 tab 10/10/17 11/28/17 Rx nifedipine ER 30 mg 30 mg PO QDAY #30 tab 10/17/17 11/28/17 Rx tablet,extended release 24 hr valsartan 160 1 tab PO BID #60 tab 10/17/17 11/28/17 Rx mg-hydrochlorothiazide 12.5 mg tablet Follow-up with his PCP next week Condition at discharge was stable for discharge Exam - Vitals Vital Signs: Vital Signs Temperature 98.1 F Temperature Source Oral Pulse Rate [Telemetry] 75 Pulse Rate [Pulse Oximeter] 65 Pulse Rate [Pulse Oximeter 79 Bilateral Radial] Pulse Rate 75 Respiratory Rate 21 Blood Pressure [Left Arm] 137/83 Blood Pressure 132/88 Pulse Ox 96 Oxygen Flow Rate 2 Oxygen Delivery Method Room Air Height 5 ft 8 in Weight 188 lb 6.4 oz - General General Appearance: No Acute Distress, Cooperative - Head Head Exam: Normal Inspection - Eye Eye Exam: POSITIVE: Normal Appearance - ENT ENT Exam: POSITIVE: Normal Exam - Neck Neck Exam: Normal Inspection - Respiratory Respiratory Exam: POSITIVE: Clear to Auscultation - Bilaterally - Cardiovascular Cardiovascular Exam: POSITIVE: RRR - GI/Abdominal GI/Abdominal Exam: POSITIVE: Normal Bowel Sounds, Non Tender, Non Distended, Soft, No Organomegaly - Rectal Rectal Exam: POSITIVE: Deferred - External Exam: POSITIVE: Deferred Exam: POSITIVE: Deferred - Extremities Extremities Exam: POSITIVE: Normal Inspection - Back Back Exam: POSITIVE: Normal Inspection - Neurological Neurological Exam: POSITIVE: Alert, Oriented x 3, Normal Gait, CN II-XII Intact , No Facial Droop, Speech Intact / Clear, Moves All Extremities Equally - Psychiatric Psychiatric Exam: POSITIVE: Normal Affect Patient Problems - Patient Problem List (1) Pancreatitis Status: Acute Comment: Lipase is normal and resolved. Code(s): K85.9 - Acute pancreatitis, unspecified Category: Medical (2) Acute renal failure Status: Acute Code(s): N17.9 - Acute kidney failure, unspecified Category: Medical (3) Essential hypertension Status: Acute Onset Date: 02/25/11 Code(s): I10 - Essential (primary) hypertension Category: Medical (4) Metabolic acidosis, increased anion gap Status: Acute Code(s): E87.2 - Acidosis Category: Medical (5) Alcohol use Status: Acute Comment: I talked to his and she told us that he drinks a quart of [place] a day I visited with her and told her he is alcohol withdrawal syndrome Code(s): Z78.9 - Other specified health status Category : Medical (6) Elevated liver function tests Status: Acute Code(s): R94.5 - Abnormal results of liver function studies Category: Medical
[2017-11-30] MEDS: PANTOPRAZOLE IV 40 MG VIAL IVP SCH (09:05)
[2017-11-30] MEDS: NIFEdipine 30 MG ER 24H TABLET PO SCH (09:06)
[2017-11-30] MEDS: MAGNESIUM OXIDE 400 MG TABLET PO SCH (09:06)
[2017-11-30] MEDS: ALPRAZolam Tab 1 MG TABLET PO SCH (09:06)
[2017-11-30] MEDS: ASPIRIN EC 81 MG TABLET PO SCH (09:06)
[2017-11-30] MEDS: Thiamine Tab 100 MG TAB PO SCH (09:06)
[2017-11-30] MEDS: Multivitamin Tab 1 TAB PO SCH (09:06)
== END 2017-11-30 09:18 | disposition home or self-care (01) | DRG 439 ==
LOC: ER 16:26 → MED/SURG 19:09
PROVIDERS: ADMIT Internal Medicine; ATTEND Internal Medicine

== ENCOUNTER 2018-08-03 12:47 | Inpatient (IN) ==
[2018-08-03] MEDS ORDERED: Sodium Chloride 0.9% 1,000 ML PRIMARY IV ONE (13:27)
[2018-08-03] MEDS ORDERED: PANTOPRAZOLE IV 40 MG VIAL IVP ONE (13:29)
[2018-08-03 13:36] LABS: BASOPHILS # (AUTO) 0.03 10*3/UL; BASOPHILS % (AUTO) 0.4 % (0-1); EOSINOPHILS # (AUTO) 0.01 10*3/UL; EOSINOPHILS % (AUTO) 0.1 % (0-8); Hemoglobin [HGB] 14.1 g/dL (14.0-18.0); LYMPHOCYTES # (AUTO) 1.34 10*3/uL; MEAN CORPUSCULAR HEMOGLOBIN 37.3 PG (27-31); MEAN CORPUSCULAR HGB CONC 35.3 g/dL (33-37); MEAN CORPUSCULAR VOLUME 105.8 FL (80-90); MEAN PLATELET VOLUME 11.4 FL (7.4-12.2); MONOCYTES # (AUTO) 0.65 10*3/UL (0.3-0.8); MONOCYTES % (AUTO) 8.3 % (5-15); NEUTROPHILS # (AUTO) 5.77 10*3/UL; NEUTROPHILS % (AUTO) 73.8 % (50-80); RED BLOOD COUNT 3.78 10^6/uL (4.70-6.10)
[2018-08-03 13:39] LABS: BUN/CREATININE RATIO 10.66 (6-20); SERUM ALBUMIN 4.7 g/dL (3.5-4.8)
[2018-08-03 13:46] LABS: PLATELET MORPHOLOGY COMMENT NORMAL MORPHOLOGY (NORM); RBC MORPHOLOGY COMMENT SEE COMMENTS (NORM); WBC MORPHOLOGY COMMENT NORMAL MORPHOLOGY (NORM)
--- NOTE | 2018-08-03 15:35 | PDOC ---
HPI - History of Present Illness Date of Service: 08/03/18 Time of Service: 16:00 Chief Complaint: Vomited blood the day before yesterday, complaining from heartburn and abdominal pain today History of Present Illness: This is a 67 years old male with medical history significant for history of history of hypertension, aortic valve replacement with bovine valve for aortic stenosis in 2006, admission in 2015 for acute alcoholic pancreatitis was complicated by severe withdrawal needed intubation, anxiety, history of hepatitis C that was treated in the past, admission in November 2017 for alcoholic pancreatitis, he presented to the hospital with history of vomiting that started the night before from 11:00 until 6 AM yesterday, he vomited multiple times it was bloody according to him. He is having severe heartburn and is complaining also from abdominal pain felt in the periumbilical area comes and goes severe according to him. Did say maybe had some melena. Because of the persistent pain he came into the ER. In the ER Lab tests were done and was discussed with Dr. Dent who suggested admission. When the patient came into the floor he continued to complain from pain in the abdomen on and off. He also had heartburn. He did say that he is not eating the last 3 days because of the heartburn. He did says that he continue taking his medications. Last time he has drink he said like 3 or 4 days ago. Sometimes according to him he goes into withdrawal. Past Medical History Medical History: 1. Hypertension. 2. Aortic valve replacement with bovine valve for aortic stenosis in 2006. 3. Hepatitis C in the past treated according to the patient with interferon and ribavirin and he cleared the infection. 4. Anxiety on Xanax twice a day. 5. GERD. 6. History of admission in 2016 for acute pancreatitis that was complicated by severe alcohol withdrawal need to be intubated he was extubated but that was unsuccessful and had to be reintubated and transferred to [facility] [place]. He had the MSSA pneumonia then also. 7. History of porphyria cutanea tarda Surgical History: 1. Aortic valve replacement bovine valve. 2. History of fatty tumor removed from the abdominal wall. 3. Hernia surgery. 4. L4-5 laminectomy 2008. 5. Left total shoulder arthroplasty in 2014 Past Social History: He smokes pipe according to him now, he drinks maybe 3 times a week two drinks a day. Smoked marijuana. He said he was sober after the first attack of pancreatitis in 2016 and started drinking again about a year ago. Tobacco Use: Current Every Day Smoker In the Past 12 Months, Have Used or Abuse Any of the Following Substance: Marijuana Medication / Allergies Home Medications: Home Medications Medication Instructions Recorded Confirmed Type Multivitamin W-Minerals/Lutein 1 tab PO DAILY tab 03/26/13 08/03/18 History [Centrum Silver Tablet] Aspirin [Low Dose Aspirin EC] 1 tab PO QD #30 tab 05/18/15 08/03/18 History Cholecalciferol (Vitamin D3) 1 cap PO QD #30 cap 05/03/16 08/03/18 Rx [Vitamin D3] lansoprazole 30 mg capsule,delayed 30 mg PO QD PRN #30 cap 02/15/18 08/03/18 Rx release nifedipine ER 30 mg 30 mg PO QDAY #30 tab 02/15/18 08/03/18 Rx tablet,extended release 24 hr valsartan 160 1 tab PO BID #60 tab 02/15/18 08/03/18 Rx mg-hydrochlorothiazide 12.5 mg tablet alprazolam 1 mg tablet 1 mg PO BID #60 tab 08/03/18 Rx Allergies/Adverse Reactions: Allergies Allergy/AdvReac Type Severity Reaction Status Date / Time codeine [Codeine] AdvReac Mild FELT BAD. Verified 08/03/18 12:49 Review of Systems - Review of Systems All Systems: Reviewed & No Additional Complaints Except as Stated Exam - Vitals Vital Signs: Vital Signs Temperature 98.0 F Temperature Source Temporal Artery Scan Pulse Rate [Pulse Oximeter] 83 Respiratory Rate 18 Blood Pressure [Left Arm] 155/105 Pulse Ox 97 Oxygen Delivery Method Room Air Height 5 ft 8 in Weight 185 lb - General General Appearance: No Acute Distress, Cooperative - Head Head Exam: Normal Inspection - Eye Eye Exam: POSITIVE: Normal Appearance - ENT ENT Exam: POSITIVE: Normal Exam - Neck Neck Exam: Normal Inspection - Respiratory Respiratory Exam: POSITIVE: Clear to Auscultation - Bilaterally - Cardiovascular Cardiovascular Exam: POSITIVE: RRR - GI/Abdominal GI/Abdominal Exam: POSITIVE: Normal Bowel Sounds, Non Distended, Soft, No Organomegaly Additional GI/Abdominal Exam Details: Some tenderness in the epigastrium noted. - Rectal Rectal Exam: POSITIVE: Deferred - External Exam: POSITIVE: Deferred Exam: POSITIVE: Deferred - Extremities Extremities Exam: POSITIVE: Normal Inspection - Back Back Exam: POSITIVE: Normal Inspection - Neurological Neurological Exam: POSITIVE: Alert, Oriented x 3, CN II-XII Intact, No Facial Droop, Speech Intact / Clear, Moves All Extremities Equally - Psychiatric Psychiatric Exam: POSITIVE: Normal Affect - Integumentary Integumentary Exam: POSITIVE: Normal Color Results - Labs CBC and BMP: 08/03/18 13:03 08/03/18 13:03 Assessment and Plan - Patient Problems (1) GI bleed Current Visit: Yes Status: Acute Comment: Looks upper GI based on his description. May be secondary to gastritis or an ulcer. Will put him on Protonix. Will put him on IV fluids. Repeat his labs, I did speak with Dr. Gaston he is planning to do EGD in the morning. Code(s): K92.2 - Gastrointestinal hemorrhage, unspecified (2) Essential hypertension Current Visit: No Status: Acute Onset Date: 02/25/11 Comment: Same med Code(s): I10 - Essential (primary) hypertension (3) Alcohol abuse Current Visit: No Status: Acute Comment: We will put him on CIWA protocol Code(s): F10.10 - Alcohol abuse, uncomplicated
[2018-08-03] MEDS ORDERED: Loperamide Tab 2 MG TABLET PO PRN (16:01)
[2018-08-03] MEDS ORDERED: MAG HYDROX/AL HYDROX/SIMETH 30 ML SUSP PO PRN (16:01)
[2018-08-03] MEDS ORDERED: MAGNESIUM 400 MG/5 ML - 30 ML (MILK OF MAGNESIA) PO PRN (16:01)
[2018-08-03] MEDS ORDERED: ONDANSETRON 4 MG/2 ML VIAL IVP PRN (16:01)
[2018-08-03] MEDS ORDERED: LIDOCAINE W/ SODIUM BICARB 0.5 ML SYR SUBD PRN (16:01)
[2018-08-03] MEDS: LORazepam Inj(ETOH withdrawal) 2 MG/ML VIAL IVP PRN ×2 (16:33→19:44)
[2018-08-03] MEDS: HYDROmorphone 2 MG/1 ML IVP PRN (16:50)
[2018-08-03 19:28] LABS: Hematocrit [HCT] 37.1 % (42.0-52.0); Hemoglobin [HGB] 13.2 g/dL (14.0-18.0)
[2018-08-03] MEDS: MAGNESIUM OXIDE 400 MG TABLET PO SCH (21:35)
[2018-08-03] MEDS: HYDROCHLOROTHIAZIDE 12.5 MG CAPSULE PO SCH (21:35)
[2018-08-03] MEDS: ALPRAZolam Tab 1 MG TABLET PO SCH (21:35)
[2018-08-03] MEDS: Valsartan Tab 160 MG TAB PO SCH (21:35)
[2018-08-03] MEDS: PANTOPRAZOLE IV 40 MG VIAL IVP SCH (21:35)
--- NOTE | 2018-08-03 23:31 | PDOC ---
GI Bleed/Rectal Complaint HPI - General Chief Complaint: GI Bleed / Rectal Pain Stated Complaint: vomiting up blood Date Seen by Provider: 08/03/18 Time Seen by Provider: 13:10 Source: POSITIVE: Patient Exam Limitations: POSITIVE: No limitations Nurse's Notes Reviewed & Considered: Yes - History of Present Illness Initial Comments: The patient is a 67-year-old male. He states that approximately 36 hours ago he "vomited up blood" several times, over 6-7 hours. He states that he thinks he has also had "a little blood in the stool". Patient has a history of alcohol abuse. He states he drinks 2-3 times a week. He states he drinks less alcohol now than he did in the past. He's had a bovine pericardial heart valve of the aortic valve placed in the past. He is not on any anticoagulants. History of hypertension any takes nifedipine. He does have a history of heartburn for which she takes Prilosec. Patient states he last drank alcohol 3 days ago. No syncope or near-syncope. No head chest or abdominal pain. 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) Severity: Moderate Quality: REPORTS: Other (Patient denies any abdominal or other pain) Context: REPORTS: Sleep (Onset while sleeping) Associated Symptoms: REPORTS: Maroon Stools Similar Symptoms Previously: No Recent Care Received: REPORTS: Denies Any Prior Injuries Related to Current Complaint?: No - Patient Home Medications Home Medications: Home Medications Multivitamin W-Minerals/Lutein [Centrum Silver Tablet] 1 tab PO DAILY tab 03/26/13 Aspirin [Low Dose Aspirin EC] 1 tab PO QD #30 tab 05/18/15 Cholecalciferol (Vitamin D3) [Vitamin D3] 1 cap PO QD #30 cap 05/03/16 lansoprazole 30 mg capsule,delayed release 30 mg PO QD PRN #30 cap 02/15/18 nifedipine ER 30 mg tablet,extended release 24 hr 30 mg PO QDAY #30 tab 02/15/18 valsartan 160 mg-hydrochlorothiazide 12.5 mg tablet 1 tab PO BID #60 tab 02/15/18 alprazolam 1 mg tablet 1 mg PO BID #60 tab 08/03/18 - Patient Allergies Allergies/Adverse Reactions: Allergies Allergy/AdvReac Type Severity Reaction Status Date / Time codeine [Codeine] AdvReac Mild FELT BAD. Verified 08/03/18 12:49 Past Medical History - heen HEENT History: Hard of Hearing, Dentures/Partials, Other (please comment) Additional HEENT History: WEARS GLASSES Cardiovascular History: Hypertension Additional Cardiovasular History: aortic valve replaced 2006 Respiratory History: Denies History Gastrointestinal History: Hepatitis, Other (please comment) Additional Gastrointestinal History: PROPHERIA Genitourinary History: Denies History Endocrine History: Denies History Musculoskeletal History: Arthritis, Back Pain, Joint Pain, Other (please comment) Prosthesis or Implant: No Additional Musculoskeletal History: shoulders replaced Neurological History: Denies History Blood Disorders: Denies History Psychiatric History: Anxiety Disorders History of Sexually Transmitted Diseases: No Male Reproductive History: Denies History Cancer History: Denies History In Past Year Been Physically Harmed or Verbally Threatened: No History of MDRO: No History of Other Communicable Diseases: No Tobacco Use: Current Every Day Smoker Alcohol Use: None Type of alcohol normally used: Hard Liquor In the Past 12 Months, Have Used or Abuse Any Substance: Marijuana Previous Surgical History: Yes Type / Date of Surgery: AORTIC VALVE REPLACEMENT (BOVINE), BILATERAL SHOULDER RE PAIRS, RIGHT INGUINAL HERNIA REPAIR, L5 DISC REPAIR Anesthesia Reactions: No Malignant Hyperthermia: No Significant Family History: No pertinent family hx Past Medical History Reviewed: Reviewed - No Changes ROS - Limitations ROS Limitations: No Limitations Constitution: REPORTS: Denies Symptoms Cardiovascular: REPORTS: Denies Cardiac Symptoms Respiratory: REPORTS: Denies Resp Symptoms Neurological: REPORTS: Denies Neuro Symptoms Gastrointestinal: REPORTS: Other ("Dark" stool, hematemesis as above) Endocrine: REPORTS: Denies Symptoms Musculoskeletal: REPORTS: Denies MS Symptoms Eyes: REPORTS: Denies Symptoms ENT: REPORTS: Denies Symptoms Skin: REPORTS: Denies Skin Symptoms Lympathic: REPORTS: Denies Lympathic Symptoms Immunologic: POSITIVE: Denies Symptoms Psychiatric: POSITIVE: Denies Psych Symptoms GI Bleed / Rectal Complaint PE - General Appearance General Appearance: POSITIVE: Alert, Cooperative, No Acute Distress, No Evidence of Trauma - HEENT HEENT: POSITIVE: Head Inspection Nml, Eyes Inspection Nml, Ears Inspection Nml, Nose Inspection Nml, Oral/Dental Inspect. Nml, Pharynx Inspect. Nml, PERRL, EOMI - Neck Neck: POSITIVE: Normal Inspection, No Apparent Injury - Respiratory Respiratory: POSITIVE: No Respiratory Distress, Breath Sounds Normal, Chest Non- Tender - Cardiovascular Cardiovascular: POSITIVE: Regular Rate and Rhythm, Equal Pulses, Strong Pulses, Murmur (2/6 systolic ejection murmur). NEGATIVE: Heart Sounds Normal Peripheral Pulses: Radial (R): 2+, Radial (L): 2+ Murmur: Systolic: Grade 2 - Abdomen Abdomen: Soft: (All Quadrants), Normal Bowel Sounds: (All Quadrants), Denies Tenderness: (All Quadrants), No Splenomegaly: (All Quadrants), No Hepatomegaly: (All Quadrants), No Guarding: (All Quadrants), No Rebound: (All Quadrants), No Palpable Pulse: (All Quadrants), No Palpabale Mass: (All Quadrants), No Distention: (All Quadrants), No Rigidity: (All Quadrants) - Genital / Rectal Rectal: POSITIVE: Non-Tender, Black Stool (Dark), Heme Positive Stool. 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, Motor Normal, Sensation Normal GI Bleed / Rectal Progress - Results Reviewed by me Lab Results Reviewed by Me: Yes Lab Results:: Laboratory Results 08/03/18 08/03/18 08/03/18 07:15 07:15 13:03 WBC 7.82 RBC 3.78 L Hgb 13.2 L 14.1 Hct 37.1 L 40.0 L MCV 105.8 H MCH 37.3 H MCHC 35.3 RDW Std Deviation 66.4 H RDW Coeff of Faviola 17.6 H Plt Count 118 L MPV 11.4 Immature Gran % (Auto) 0.3 Neut % (Auto) 73.8 Lymph % (Auto) 17.1 [place] % (Auto) 8.3 Eos % (Auto) 0.1 Baso % (Auto) 0.4 Immature Gran # (Auto) 0.02 Neut # (Auto) 5.77 Lymph # (Auto) 1.34 [place] # (Auto) 0.65 Eos # (Auto) 0.01 Baso # (Auto) 0.03 WBC Morphology Comment Normal morphology Plt Morphology Comment Normal morphology RBC Morph Comment See comments PT INR Sodium Potassium Chloride Carbon Dioxide Anion Gap BUN Creatinine Estimated GFR BUN/Creatinine Ratio Glucose Calculated Osmolality Calcium Total Bilirubin AST ALT Alkaline Phosphatase Total Creatine Kinase Total Protein Albumin Globulin Albumin/Globulin Ratio Amylase Lipase Serum Alcohol Blood Type O POSITIVE Antibody Screen Negative 08/03/18 08/03/18 08/03/18 13:03 13:03 13:03 WBC RBC Hgb Hct MCV MCH MCHC RDW Std Deviation RDW Coeff of Faviola Plt Count MPV Immature Gran % (Auto) Neut % (Auto) Lymph % (Auto) [place] % (Auto) Eos % (Auto) Baso % (Auto) Immature Gran # (Auto) Neut # (Auto) Lymph # (Auto) [place] # (Auto) Eos # (Auto) Baso # (Auto) WBC Morphology Comment Plt Morphology Comment RBC Morph Comment PT 11.4 INR 1.13 Sodium 139 Potassium 3.1 L Chloride 97 L Carbon Dioxide 26 Anion Gap 16 BUN 16 Creatinine 1.5 Estimated GFR 47 BUN/Creatinine Ratio 10.66 Glucose 110 Calculated Osmolality 289.0 Calcium 9.3 Total Bilirubin 2.1 H AST 73 H ALT 42 Alkaline Phosphatase 63 Total Creatine Kinase 355 H Total Protein 8.2 H Albumin 4.7 Globulin 3.5 Albumin/Globulin Ratio 1.30 Amylase 90 Lipase Serum Alcohol < 10 Blood Type Antibody Screen 08/03/18 13:03 WBC RBC Hgb Hct MCV MCH MCHC RDW Std Deviation RDW Coeff of Faviola Plt Count MPV Immature Gran % (Auto) Neut % (Auto) Lymph % (Auto) [place] % (Auto) Eos % (Auto) Baso % (Auto) Immature Gran # (Auto) Neut # (Auto) Lymph # (Auto) [place] # (Auto) Eos # (Auto) Baso # (Auto) WBC Morphology Comment Plt Morphology Comment RBC Morph Comment PT INR Sodium Potassium Chloride Carbon Dioxide Anion Gap BUN Creatinine Estimated GFR BUN/Creatinine Ratio Glucose Calculated Osmolality Calcium Total Bilirubin AST ALT Alkaline Phosphatase Total Creatine Kinase Total Protein Albumin Globulin Albumin/Globulin Ratio Amylase Lipase 107 Serum Alcohol Blood Type Antibody Screen CBC and BMP: 08/03/18 13:03 08/03/18 13:03 - Patient's Progress Pain Medication Addressed: POSITIVE: Not Applicable School/Work Release Addressed: POSITIVE: Not Applicable Re-Examine Time:: 14:50 Re-Examine Comment: Options of treatment discussed with patient and with Dr. Gaston, surgeon. It was decided that the most efficacious way to get to the bottom of this problem is that the patient to ensure hemodynamic stability, and then to perform endoscopic evaluation tomorrow. Patient given 20 mg of Prilosec IV in the emergency room. Status: POSITIVE: Unchanged, Re-Examined - Consult Consult (If Yes, Name of Consulting MD & Time Called): Yes (Dr. Gaston, surgeon, 1450; Dr. Santos, hospitalist 1500) Consulting MD will see pt:: POSITIVE: [facility] [place] Ad[place] Counseled: POSITIVE: Patient, RE: Lab Results, RE: DX, RE: Need for F/U Patient Care Time - Estimated PCT Patient Care Time (In Minutes): 45 Vital Signs - VS Reviewed Vital Signs Reviewed: Yes Discharge Clinical Impression: GI bleeding Discharge Disposition: Admit to Inpatient Condition: Fair Date Decision to Admit to Inpatient: 08/03/18 Time Decision to Admit to Inpatient: 14:50
[2018-08-04] MEDS: LORazepam Inj(ETOH withdrawal) 2 MG/ML VIAL IVP PRN ×5 (04:01→22:33)
[2018-08-04] MEDS: HYDROmorphone 2 MG/1 ML IVP PRN ×4 (04:48→23:28)
[2018-08-04 04:55] LABS: BASOPHILS # (AUTO) 0.01 10*3/UL; BASOPHILS % (AUTO) 0.2 % (0-1); EOSINOPHILS % (AUTO) 1.6 % (0-8); Hematocrit [HCT] 36.6 % (42.0-52.0); Hemoglobin [HGB] 12.7 g/dL (14.0-18.0); LYMPHOCYTES # (AUTO) 1.41 10*3/uL; MEAN CORPUSCULAR HEMOGLOBIN 36.2 PG (27-31); MEAN CORPUSCULAR HGB CONC 34.7 g/dL (33-37); MEAN CORPUSCULAR VOLUME 104.3 FL (80-90); MEAN PLATELET VOLUME 11.4 FL (7.4-12.2); MONOCYTES # (AUTO) 0.52 10*3/UL (0.3-0.8); MONOCYTES % (AUTO) 8.3 % (5-15); NEUTROPHILS # (AUTO) 4.17 10*3/UL; RED BLOOD COUNT 3.51 10^6/uL (4.70-6.10)
[2018-08-04 05:05] LABS: BLOOD UREA NITROGEN 12 mg/dL (7-22); SERUM ALBUMIN 3.7 g/dL (3.5-4.8)
[2018-08-04 05:06] LABS: PLATELET MORPHOLOGY COMMENT NORMAL MORPHOLOGY (NORM); RBC MORPHOLOGY COMMENT NORMAL MORPHOLOGY (NORM); WBC MORPHOLOGY COMMENT NORMAL MORPHOLOGY (NORM)
[2018-08-04] MEDS: MAGNESIUM OXIDE 400 MG TABLET PO SCH ×2 (09:13→20:13)
[2018-08-04] MEDS: CHOLECALCIFEROL 1000 IU TABLET PO SCH (09:13)
[2018-08-04] MEDS: Valsartan Tab 160 MG TAB PO SCH ×2 (09:13→20:16)
[2018-08-04] MEDS: ALPRAZolam Tab 1 MG TABLET PO SCH ×2 (09:13→20:14)
[2018-08-04] MEDS: PANTOPRAZOLE IV 40 MG VIAL IVP SCH ×2 (09:13→20:15)
[2018-08-04] MEDS: HYDROCHLOROTHIAZIDE 12.5 MG CAPSULE PO SCH ×2 (09:13→20:14)
[2018-08-04] MEDS: NIFEdipine 30 MG ER 24H TABLET PO SCH (09:13)
[2018-08-04] MEDS: Multivitamin Tab 1 TAB PO SCH (09:13)
--- NOTE | 2018-08-04 09:22 | CONSULT ---
Consult Note - Consult Consult Date: 08/04/18 Reason for Consult: PreOp Consulation : General Surgery Primary Care Provider: Tyler Manuel MD - History of Present Illness History of Present Illness: This 67-year-old gentleman denies valuate for possible EGD. Patient do a blood 2 days ago. He states he threw up a lot of blood. Patient does drink significant amounts of alcohol. When asked how much he does answers to much. He has a history of hepatitis C and went to treatment. He denies any ever had cirrhosis of the liver are has esophageal varices. He states that this all started with what he called heartburn type symptoms prior to him thrown up the blood. He has had no blood in the stools he denies any dark tarry stools. His hemoglobin is in the 12.6 range and crit of 36.6. He's had no further episodes of throwing up. Patient is beginning to "shake" and patient thinks he needs be treated for that Review of Systems - Review of Systems All Systems: Reviewed & No Additional Complaints Except as Stated Past Medical History Medical History: 1. Hypertension. 2. Aortic valve replacement with bovine valve for aortic stenosis in 2006. 3. Hepatitis C in the past treated according to the patient with interferon and ribavirin and he cleared the infection. 4. Anxiety on Xanax twice a day. 5. GERD. 6. History of admission in 2016 for acute pancreatitis that was complicated by severe alcohol withdrawal need to be intubated he was extubated but that was unsuccessful and had to be reintubated and transferred to [facility] [place]. He had the MSSA pneumonia then also. 7. History of porphyria cutanea tarda Surgical History: 1. Aortic valve replacement bovine valve. 2. History of fatty tumor removed from the abdominal wall. 3. Hernia surgery. 4. L4-5 laminectomy 2008. 5. Left total shoulder arthroplasty in 2014 Past Social History: He smokes pipe according to him now, he drinks maybe 3 times a week two drinks a day. Smoked marijuana. He said he was sober after the first attack of pancreatitis in 2015 and started drinking again about a year ago. Tobacco Use: Current Every Day Smoker In the Past 12 Months, Have Used or Abuse Any of the Following Substance: Marijuana Medication / Allergies Home Medications: Home Medications Medication Instructions Recorded Confirmed Type Multivitamin W-Minerals/Lutein 1 tab PO DAILY tab 12/03/13 04/12/19 History [Centrum Silver Tablet] Aspirin [Low Dose Aspirin EC] 1 tab PO QD #30 tab 05/18/15 08/03/18 History Cholecalciferol (Vitamin D3) 1 cap PO QD #30 cap 05/03/16 08/03/18 Rx [Vitamin D3] lansoprazole 30 mg capsule,delayed 30 mg PO QD PRN #30 cap 02/15/18 08/03/18 Rx release nifedipine ER 30 mg 30 mg PO QDAY #30 tab 02/15/18 08/03/18 Rx tablet,extended release 24 hr valsartan 160 1 tab PO BID #60 tab 02/15/18 08/03/18 Rx mg-hydrochlorothiazide 12.5 mg tablet alprazolam 1 mg tablet 1 mg PO BID #60 tab 08/03/18 Rx Allergies/Adverse Reactions: Allergies Allergy/AdvReac Type Severity Reaction Status Date / Time codeine [Codeine] AdvReac Mild FELT BAD. Verified 08/03/18 12:49 Results - Labs CBC and BMP: 08/04/18 04:30 08/04/18 04:30 Exam - Vitals Vital Signs: Vital Signs Temperature 98.2 F Temperature Source Oral Pulse Rate [Pulse Oximeter] 80 Pulse Rate 77 Respiratory Rate 20 Blood Pressure [Right Arm] 151/89 Blood Pressure [Left Arm] 156/119 Blood Pressure 151/91 Pulse Ox 98 Oxygen Delivery Method Room Air Height 5 ft 8 in Weight 185 lb 9.6 oz - General General Appearance: No Acute Distress, Cooperative - Eye Eye Exam: POSITIVE: PERRL, EOMI - Respiratory Respiratory Exam: POSITIVE: Clear to Auscultation - Bilaterally, Breathing Non L abored - Cardiovascular Cardiovascular Exam: POSITIVE: RRR - GI/Abdominal GI/Abdominal Exam: POSITIVE: Normal Bowel Sounds, Non Tender, Non Distended - Neurological Neurological Exam: POSITIVE: Alert, Oriented x 3, CN II-XII Intact Additional Neurological Exam Details: Patient is started having shakiness Assessment and Plan - Patient Problems (1) GI bleed Current Visit: Yes Status: Acute Code(s): K92.2 - Gastrointestinal hemorrhage, unspecified - Assessment / Plan Additional Assessment/Plan Details: At this point the patient is hemodynamically stable. He is on Protonix. I talked about doing an EGD. Also mentioned that he can this be treated for hemorrhagic gastritis possible ulcer disease. Patient states at this point he does not want to have the EGD. Therefore will continue the Protonix. I would check him for H. pylori. If he starts having further hematemesis we can then do the scope. I discussed situation with Dr. Santos after I saw the patient.
--- NOTE | 2018-08-04 09:28 | PDOC(PROG) ---
Date of Service: 08/04/18 Time of Service: 09:30 Interval History: Subjective Patient continued to complain from some pain in his abdomen in the periumbilical area still complained from heartburn according to him. There is no more vomiting though since he's been here. No bowel movement. He's having the sha kes from alcohol withdrawal. Objective : Data - Labs CBC and BMP: 08/04/18 04:30 08/04/18 04:30 Objective : Exam - General General Appearance: Cooperative - Head Head Exam: Normal Inspection - Eye Eye Exam: Normal Appearance - ENT ENT Exam: Normal Exam - Neck Neck Exam: Normal Inspection - Respiratory Respiratory Exam: Clear to Auscultation - Bilaterally - Cardiovascular Cardiovascular Exam: RRR - GI/Abdominal GI/Abdominal Exam: Normal Bowel Sounds, Non Tender, Non Distended, Soft, No Organomegaly - Rectal Rectal Exam: Deferred - External Exam: Deferred - Extremities Extremities Exam: Normal Inspection - Back Back Exam: Normal Inspection - Neurological Neurological Exam: Alert, Oriented x 3, CN II-XII Intact, No Facial Droop, Speech Intact / Clear Additional Neurological Exam Details: Tremor noted in his hands - Psychiatric Psychiatric Exam: Normal Affect - Integumentary Integumentary Exam: Normal Color Assessment and Plan - Patient Problems (1) GI bleed Current Visit: Yes Status: Acute Comment: There is only slight drop in his hemoglobin. Continue Protonix. He doesn't want to have the EGD now. Continue IV fluid but at a lower rate. Will send for stool for H. pylori. Code(s): K92.2 - Gastrointestinal hemorrhage, unspecified (2) Essential hypertension Current Visit: No Status: Acute Onset Date: 02/25/11 Comment: Same medication Code(s): I10 - Essential (primary) hypertension (3) Alcohol abuse Current Visit: No Status: Acute Comment: Continue CIWA protocol as he started to develop withdrawal symptoms from alcohol. Code(s): F10.10 - Alcohol abuse, uncomplicated (4) Hypokalemia Current Visit: Yes Status: Acute Comment: Replace potassium Code(s): E87.6 - Hypokalemia
[2018-08-04] MEDS: LORazepam 1 mg tab (ETOH withdrawal) PO PRN ×2 (09:30→12:14)
[2018-08-04] MEDS: POTASSIUM CHLORIDE 20 MEQ TAB PO SCH (17:15)
[2018-08-05] MEDS: LORazepam Inj(ETOH withdrawal) 2 MG/ML VIAL IVP PRN ×4 (03:16→09:49)
[2018-08-05] MEDS: HYDROmorphone 2 MG/1 ML IVP PRN ×2 (03:16→07:09)
[2018-08-05 04:44] LABS: BASOPHILS # (AUTO) 0.04 10*3/UL; BASOPHILS % (AUTO) 0.5 % (0-1); EOSINOPHILS # (AUTO) 0.22 10*3/UL; Hemoglobin [HGB] 13.2 g/dL (14.0-18.0); LYMPHOCYTES # (AUTO) 1.67 10*3/uL; MEAN CORPUSCULAR HEMOGLOBIN 37.1 PG (27-31); MEAN CORPUSCULAR HGB CONC 35.7 g/dL (33-37); MEAN CORPUSCULAR VOLUME 103.9 FL (80-90); MEAN PLATELET VOLUME 11.2 FL (7.4-12.2); MONOCYTES # (AUTO) 0.69 10*3/UL (0.3-0.8); MONOCYTES % (AUTO) 9.4 % (5-15); NEUTROPHILS # (AUTO) 4.64 10*3/UL; NEUTROPHILS % (AUTO) 63.6 % (50-80); RED BLOOD COUNT 3.56 10^6/uL (4.70-6.10)
[2018-08-05 04:54] LABS: PLATELET MORPHOLOGY COMMENT NORMAL MORPHOLOGY (NORM); RBC MORPHOLOGY COMMENT NORMAL MORPHOLOGY (NORM); WBC MORPHOLOGY COMMENT NORMAL MORPHOLOGY (NORM)
[2018-08-05 05:06] LABS: BLOOD UREA NITROGEN 12 mg/dL (7-22); SERUM ALBUMIN 3.8 g/dL (3.5-4.8)
[2018-08-05] MEDS: POTASSIUM CHLORIDE 20 MEQ TAB PO SCH ×2 (07:09→07:15)
[2018-08-05] MEDS: CHOLECALCIFEROL 1000 IU TABLET PO SCH (08:18)
[2018-08-05] MEDS: MAGNESIUM OXIDE 400 MG TABLET PO SCH (08:18)
[2018-08-05] MEDS: PANTOPRAZOLE IV 40 MG VIAL IVP SCH (08:18)
[2018-08-05] MEDS: Valsartan Tab 160 MG TAB PO SCH (08:18)
[2018-08-05] MEDS: Multivitamin Tab 1 TAB PO SCH (08:18)
[2018-08-05] MEDS: ALPRAZolam Tab 1 MG TABLET PO SCH (08:18)
[2018-08-05] MEDS: HYDROCHLOROTHIAZIDE 12.5 MG CAPSULE PO SCH (08:18)
[2018-08-05] MEDS: NIFEdipine 30 MG ER 24H TABLET PO SCH (08:19)
[2018-08-05 09:20] VITALS: BP 158/90; RESP 18; TEMP 97.7
[2018-08-05 09:21] VITALS: O2SAT 95
--- NOTE | 2018-08-05 10:30 | DCSUMMARY ---
Hospitalization Summary Hospital Course: Final Discharge Diagnosis: Current Visit Problems Problem Status Onset Code GI bleed Acute K92.2 Hypokalemia Acute E87.6 Diagnostic Data, Laboratory Data, and Procedures of Signifigance: Laboratory Results 08/05/18 08/05/18 04:10 04:10 WBC 7.31 RBC 3.56 L Hgb 13.2 L Hct 37.0 L MCV 103.9 H MCH 37.1 H MCHC 35.7 RDW Std Deviation 61.1 H RDW Coeff of Faviola 16.5 H Plt Count 110 L MPV 11.2 Immature Gran % (Auto) 0.7 Neut % (Auto) 63.6 Lymph % (Auto) 22.8 [place] % (Auto) 9.4 Eos % (Auto) 3.0 Baso % (Auto) 0.5 Immature Gran # (Auto) 0.05 Neut # (Auto) 4.64 Lymph # (Auto) 1.67 [place] # (Auto) 0.69 Eos # (Auto) 0.22 Baso # (Auto) 0.04 WBC Morphology Comment Normal morphology Plt Morphology Comment Normal morphology RBC Morph Comment Normal morphology Sodium 135 Potassium 3.5 L Chloride 102 Carbon Dioxide 22 L Anion Gap 11 BUN 12 Creatinine 1.0 Estimated GFR > 60 BUN/Creatinine Ratio 12.00 Glucose 89 Calculated Osmolality 278.0 Calcium 8.5 L Total Bilirubin 1.1 AST 154 H ALT 95 H Alkaline Phosphatase 52 Total Protein 6.5 Albumin 3.8 Globulin 2.7 Albumin/Globulin Ratio 1.40 History and Physical pertinent to Admission: Review of Systems - Review of Systems All Systems: Reviewed & No Additional Complaints Except as Stated Past Medical History Medical History: 1. Hypertension. 2. Aortic valve replacement with bovine valve for aortic stenosis in 2006. 3. Hepatitis C in the past treated according to the patient with interferon and ribavirin and he cleared the infection. 4. Anxiety on Xanax twice a day. 5. GERD. 6. History of admission in 2016 for acute pancreatitis that was complicated by severe alcohol withdrawal need to be intubated he was extubated but that was unsuccessful and had to be reintubated and transferred to [facility] [place]. He had the MSSA pneumonia then also. 7. History of porphyria cutanea tarda Surgical History: 1. Aortic valve replacement bovine valve. 2. History of fatty tumor removed from the abdominal wall. 3. Hernia surgery. 4. L4-5 laminectomy 2008. 5. Left total shoulder arthroplasty in 2015 Past Social History: He smokes pipe according to him now, he drinks maybe 3 times a week two drinks a day. Smoked marijuana. He said he was sober after the first attack of pancreatitis in 2016 and started drinking again about a year ago. Tobacco Use: Current Every Day Smoker Course of Hospitalization: Is a very nice 67-year-old gentleman was admitted for throwing up blood and general surgery was consulted denies any dark or tarry stools hemoglobin remained stable throughout his hospital stay. She did not want EGD because he felt better and did not have any further vomiting Dr. tracey Lorenz put him on Protonix for possible gastritis. Patient has chronic anxiety disorder and is on alprazolam from his primary care physician. This morning he tolerated some food no further vomiting he is coherent and oriented to person time and place. He says he has animals at home to take care of horses. Nurse Mireille and came in the room with me patient was appropriate and answering all questions. I did offer him to stay in the hospital for one more day to continue to observe to make sure he was not going to vomit blood again at this time he is stable he has no shakes he is not belligerent he will not be driving home he will take a taxi home since he received the some dye lauded this morning. I have also discussed the case with Dr. tracey Lorenz which agreed the with the patient's discharge on Protonix 40 twice a day which I felt it called in at [facility] pharmacy and explained to the patient. Patient states no matter what he needs to go home and will go home because he needs to go take care of his horses no matter what I say are anybody says. If he throws up again he states he will come back to the hospital. He also has all his medications at home including alprazolam and Prevacid. I told him to take the Protonix which I called in instead of the Prevacid. He did receive IV Protonix today denies chest pain nausea or vomiting black or tarry stools no visual disturbances as well vital signs are stable with no tachycardia On the date of discharge, the patient was examined: Gen.: No acute distress, alert, nontoxic Heart: Regular rate and rhythm, no murmurs, clicks, gallops, or rubs Lungs: Clear to auscultation bilaterally, breathing is nonlabored Abdomen/GI: Normal tones on auscultation, soft, nontender, nondistended Musculoskeletal/extremities: No clubbing, cyanosis, or edema Vitals reviewed and are listed below Vital Signs (24 hrs) 08/04/18 11:00 08/04/18 12:02 08/04/18 12:03 Temperature 97.5 F Pulse Rate 66 Pulse Rate Pulse Oximeter Respiratory Rate 24 Blood Pressure 142/98 Blood Pressure Left Arm 142/98 Blood Pressure Right Arm Pulse Ox 95 08/04/18 12:08 08/04/18 13:50 08/04/18 15:00 Temperature 97.5 F 98.1 F Pulse Rate 77 Pulse Rate Pulse Oximeter 66 Respiratory Rate 24 20 Blood Pressure 141/94 Blood Pressure Left Arm 142/98 Blood Pressure Right Arm Pulse Ox 95 95 08/04/18 16:39 08/04/18 17:04 08/04/18 19:00 Temperature 97.6 F 97.3 F Pulse Rate 68 Pulse Rate Pulse Oximeter 79 63 Respiratory Rate 24 14 16 Blood Pressure 157/110 Blood Pressure Left Arm 141/94 Blood Pressure Right Arm Pulse Ox 90 96 08/04/18 19:15 08/04/18 21:00 08/04/18 22:30 Temperature 98 F 98 F 98 F Pulse Rate 63 63 Pulse Rate Pulse Oximeter 63 Respiratory Rate 16 15 16 Blood Pressure 170/104 172/105 Blood Pressure Left Arm Blood Pressure Right Arm 161/105 Pulse Ox 96 08/04/18 22:32 08/04/18 23:00 08/05/18 02:45 Temperature 98.7 F Pulse Rate Pulse Rate Pulse Oximeter 76 Respiratory Rate 18 Blood Pressure Blood Pressure Left Arm Blood Pressure Right Arm 172/105 143/103 Pulse Ox 96 96 08/05/18 03:00 08/05/18 03:12 08/05/18 06:13 Temperature 98.7 F 98.0 F Pulse Rate 76 77 Pulse Rate Pulse Oximeter Respiratory Rate 18 16 Blood Pressure 143/103 150/95 Blood Pressure Left Arm Blood Pressure Right Arm Pulse Ox 96 08/05/18 07:15 08/05/18 09:18 08/05/18 09:20 Temperature 97.7 F 97.7 F Pulse Rate 69 Pulse Rate Pulse Oximeter 69 Respiratory Rate 18 18 Blood Pressure 158/90 Blood Pressure Left Arm 158/90 Blood Pressure Right Arm Pulse Ox 96 95 Assessment and Plan: 1. As per discharge assessments above 2. Disposition: Home 3. Condition on discharge, stable and improved. 4. Diet: regular diet 5. Activities: resume normal activities 6. Follow-Up: 1. PCP Dr. [place] 2. 7. Medications at the Time of Discharge: Home Medications Medication Instructions Recorded Confirmed Type Multivitamin W-Minerals/Lutein 1 tab PO DAILY tab 03/26/13 08/03/18 History [Centrum Silver Tablet] Cholecalciferol (Vitamin D3) 1 cap PO QD #30 cap 05/03/16 08/03/18 Rx [Vitamin D3] lansoprazole 30 mg capsule,delayed 30 mg PO QD PRN #30 cap 02/15/18 08/03/18 Rx release nifedipine ER 30 mg 30 mg PO QDAY #30 tab 02/15/18 08/03/18 Rx tablet,extended release 24 hr valsartan 160 1 tab PO BID #60 tab 02/15/18 08/03/18 Rx mg-hydrochlorothiazide 12.5 mg tablet alprazolam 1 mg tablet 1 mg PO BID #60 tab 08/03/18 Rx Pantoprazole Sodium [Protonix] 40 mg PO BID #60 tablet 08/05/18 Rx 8. Time, care, counseling and coordination of care for this discharge is greater than 30 minutes. Exam - Vitals Vital Signs: Vital Signs Temperature 97.7 F Temperature Source Temporal Artery Scan Pulse Rate [Pulse Oximeter] 69 Pulse Rate 69 Respiratory Rate 18 Blood Pressure [Right Arm] 143/103 Blood Pressure [Left Arm] 158/90 Blood Pressure 158/90 Pulse Ox 95 Oxygen Delivery Method Room Air Height 5 ft 8 in Weight 185 lb 9.6 oz
== END 2018-08-05 10:34 | disposition home or self-care (01) | DRG 379 ==
LOC: ER 12:47 → MED/SURG 15:24
PROVIDERS: ADMIT Internal Medicine; ATTEND Internal Medicine